=== PATIENT | female | born 1965 | race Two or more races ===

== ENCOUNTER 2024-02-15 20:18 | Emergency (ER) | payer SELFPAY ==
[2024-02-15] MEDS: Acetaminophen 500 MG Tab PO ONE (20:20)
[2024-02-15] MEDS: Ketorolac 30 MG/ML SDV IM ONE (20:20)
[2024-02-15 20:42] VITALS: BP 146/77; PULSE 104
== END 2024-02-15 20:47 | disposition home or self-care (01) ==
LOC: DL.ED 20:18
DX: B34.9 Viral infection, unspecified (principal); E11.9 Type 2 diabetes mellitus without complications; Z88.0 Allergy status to penicillin; Z79.4 Long term (current) use of insulin; Z79.82 Long term (current) use of aspirin; Z79.84 Long term (current) use of oral hypoglycemic drugs; Z79.899 Other long term (current) drug therapy
CPT/HCPCS: 96372; 99284; A9270-GY; J1885

== ENCOUNTER 2025-01-05 16:42 | Emergency (ER) | payer MEDICAID ==
[~2025-01-05 16:42] MED LIST: Sodium Chloride 0.9% 10 ML Syringe FLUSH PRN
[2025-01-05 16:48] LABS: BASOPHILS PERCENT AUTO 0.2 % (0.0-1.0); EOSINOPHILS PERCENT AUTO 0.0 % (1.0-3.0); LYMPHOCYTES PERCENT AUTO 5.3 % (20.5-50.1); MONOCYTES PERCENT AUTO 6.0 % (2-8); NEUTROPHILS PERCENT AUTO 88.5 % (42.2-75.2); PLATELET COUNT,PLT 293 10^3/uL (150-450); RED BLOOD CELL COUNT 4.95 10^6/uL (4.2-5.4); WHITE BLOOD CELL COUNT,WBC 17.4 10^3/uL (5.0-10.0)
[2025-01-05 17:02] LABS: ALANINE AMINOTRANSFERASE,ALT 13 U/L (14-59); ASPARTATE AMNIOTRANSFERASE,AST 12 U/L (15-37); BILIRUBIN TOTAL 0.7 mg/dL (0.2-1.0); BLOOD UREA NITROGEN,BUN 11 mg/dL (7-18); CARBON DIOXIDE,CO2 23 mmol/L (21-32); CHLORIDE,CL 90 mmol/L (98-107); CREATININE 0.89 mg/dL (0.55-1.02); GLUCOSE RANDOM 400 mg/dL (70-99); POTASSIUM,K 4.0 mmol/L (3.5-5.1); PROTEIN TOTAL,TP 8.0 g/dL (6.4-8.2); SODIUM,NA 128 mmol/L (136-145)
[2025-01-05 17:05] LABS: LACTIC ACID 1.6 mmol/L (0.4-2.0)
[2025-01-05 17:10] LABS: A/G RATIO 0.45; ESTIMATED GFR 74 mL/min (>=60); ETHANOL BLOOD MEDICAL < 3 mg/dL (0)
[2025-01-05 17:28] LABS: APPEARANCE,URINE SLIGHTLY CLOUDY (CLEAR); GLUCOSE,URINE 500 (NEGATIVE); OCCULT BLOOD,URINE LARGE (NEGATIVE)
[2025-01-05 17:30] LABS: AMPHETAMINES,URINE NEGATIVE (NEGATIVE); BARBITURATES,URINE NEGATIVE (NEGATIVE); MDMA (ECSTASY), URINE NEGATIVE (NEGATIVE); METHAMPHETAMINES,URINE POSITIVE (NEGATIVE); OPIATES,URINE POSITIVE (NEGATIVE); OXYCODONE,URINE NEGATIVE (NEGATIVE); PHENCYCLIDINE,URINE NEGATIVE (NEGATIVE); TCA,URINE NEGATIVE (NEGATIVE)
[2025-01-05 17:38] LABS: EPITHELIAL CELLS,URINE MODERATE /HPF (NOT SEEN)
[2025-01-05] MEDS: Ketorolac 30 MG/ML SDV IVPUSH ONE (17:40)
[2025-01-05] MEDS: Magnesium Sulfate 2 GM/50 mL 2 GM in Premix Bag 1 BAG IV ONE (17:46)
[2025-01-05 23:08] VITALS: BP 131/67; PULSE 99
== END 2025-01-05 21:30 ==
LOC: DL.ED 16:42
DX: A41.9 Sepsis, unspecified organism (principal); I10 Essential (primary) hypertension; E11.9 Type 2 diabetes mellitus without complications; Z88.0 Allergy status to penicillin; Z79.899 Other long term (current) drug therapy; Z79.82 Long term (current) use of aspirin; Z79.4 Long term (current) use of insulin; Z79.84 Long term (current) use of oral hypoglycemic drugs
CPT/HCPCS: 36415; 70450; 71045; 72125; 72192; 80053; 80305; 80307; 81001; 82947; 83605; 83735; 84145; 85025; 86140; 87040; 87077; 87086; 87088; 87186; 96361; 96365; 96366; 96368; 96375; 99285; J0692; J1885; J3373; J3475; J7030; J7040